=== PATIENT | female | born 1930 | race Caucasian/White ===

== ENCOUNTER → 2016-05-28 | Outpatient (CLI) | payer MEDICARE, BC ==
[~2016-05-28] MED LIST: ACIDTAB4 PO; ALPR0.25 PO; AUGM875T PO; BACT800T5 PO; BIOTCAP PO; DIOV80TA2 PO; LOTR10CA PO; POTA75TA PO; ZOCO40TA PO
[2016-05-28 09:12] LABS: HEMATOCRIT 34.6 % (35.0-46.0); MEAN CELL VOLUME 90.1 FL (80.0-100.0); MEAN CORPUSCULAR HEMOGLOBIN 29.4 PG (27.0-34.0); MEAN CORPUSCULAR HGB CONC 32.6 % (32.0-36.0); PLATELET COUNT 175 TH/MM3 (150-450); RED BLOOD COUNT 3.83 MIL/MM3 (4.00-5.30); RED CELL DISTRIBUTION WIDTH 13.6 % (11.6-17.2); REVIEW FLAG FINAL; WHITE BLOOD COUNT 7.5 TH/MM3 (4.0-11.0)
[2016-05-28 09:40] LABS: ALKALINE PHOSPHATASE 136 U/L (45-117); ALT (GPT) 15 U/L (10-53); ANION GAP 6 MEQ/L (5-15); AST (GOT) 18 U/L (15-37); BICARBONATE 27.8 MEQ/L (21.0-32.0); BLOOD UREA NITROGEN 30 MG/DL (7-18); CHLORIDE 106 MEQ/L (98-107); GLOMERULAR FILTRATION RATE 36 ML/MIN (>89); GLUCOSE,FASTING 87 MG/DL (74-99); HDL CHOLESTEROL 44.5 MG/DL (40.0-60.0); LDL CHOLESTEROL 77 MG/DL (0-99); LDL CHOLESTEROL DIRECT 89 MG/DL (0-99); POTASSIUM 4.7 MEQ/L (3.5-5.1); SODIUM (NA) 140 MEQ/L (136-145); TOTAL BILIRUBIN ADULT 0.4 MG/DL (0.2-1.0)
== END ==
LOC: PLAB 07:02
PROVIDERS: ATTEND Family Medicine
DX: I25.10 Atherosclerotic heart disease of native coronary artery without angina pectoris (principal); I12.9 Hypertensive chronic kidney disease with stage 1 through stage 4 chronic kidney disease, or unspecified chronic kidney disease; N18.3 Chronic kidney disease, stage 3 (moderate); R53.83 Other fatigue; E78.4 Other hyperlipidemia
CPT/HCPCS: 36415; 80053; 80061; 82607; 83721; 84443; 85027

== ENCOUNTER → 2016-08-27 | Outpatient (CLI) | payer MEDICARE, BC ==
[2016-08-27 09:21] LABS: ANION GAP 7 MEQ/L (5-15); AST (GOT) 18 U/L (15-37); BICARBONATE 22.8 MEQ/L (21.0-32.0); BLOOD UREA NITROGEN 34 MG/DL (7-18); CHLORIDE 105 MEQ/L (98-107); GLOMERULAR FILTRATION RATE 35 ML/MIN (>89); GLUCOSE,FASTING 86 MG/DL (74-99); POTASSIUM 4.9 MEQ/L (3.5-5.1); SODIUM (NA) 135 MEQ/L (136-145)
[2016-08-27 09:22] LABS: HEMATOCRIT 36.3 % (35.0-46.0); MEAN CELL VOLUME 89.4 FL (80.0-100.0); MEAN CORPUSCULAR HGB CONC 32.4 % (32.0-36.0); PLATELET COUNT 191 TH/MM3 (150-450); RED BLOOD COUNT 4.06 MIL/MM3 (4.00-5.30); RED CELL DISTRIBUTION WIDTH 13.7 % (11.6-17.2); REVIEW FLAG FINAL; WHITE BLOOD COUNT 7.7 TH/MM3 (4.0-11.0)
[2016-08-27 09:51] LABS: ALKALINE PHOSPHATASE 122 U/L (45-117); ALT (GPT) 16 U/L (10-53); HDL CHOLESTEROL 41.7 MG/DL (40.0-60.0); LDL CHOLESTEROL 88 MG/DL (0-99); LDL CHOLESTEROL DIRECT 77 MG/DL (0-99); TOTAL BILIRUBIN ADULT 0.3 MG/DL (0.2-1.0)
== END ==
LOC: PLAB 07:02
PROVIDERS: ATTEND Family Medicine
DX: I25.10 Atherosclerotic heart disease of native coronary artery without angina pectoris (principal); E78.5 Hyperlipidemia, unspecified; I10 Essential (primary) hypertension; E53.8 Deficiency of other specified B group vitamins
CPT/HCPCS: 36415; 80053; 80061; 82607; 83721; 85027

== ENCOUNTER → 2016-11-26 | Outpatient (CLI) | payer MEDICARE, BC ==
[2016-11-26 09:28] LABS: HEMATOCRIT 35.7 % (35.0-46.0); MEAN CELL VOLUME 92.4 FL (80.0-100.0); MEAN CORPUSCULAR HEMOGLOBIN 29.7 PG (27.0-34.0); MEAN CORPUSCULAR HGB CONC 32.2 % (32.0-36.0); PLATELET COUNT 210 TH/MM3 (150-450); RED BLOOD COUNT 3.87 MIL/MM3 (4.00-5.30); RED CELL DISTRIBUTION WIDTH 14.3 % (11.6-17.2); REVIEW FLAG FINAL; WHITE BLOOD COUNT 7.2 TH/MM3 (4.0-11.0)
[2016-11-26 09:45] LABS: ANION GAP 6 MEQ/L (5-15); BICARBONATE 24.1 MEQ/L (21.0-32.0); BLOOD UREA NITROGEN 32 MG/DL (7-18); CHLORIDE 108 MEQ/L (98-107); GLOMERULAR FILTRATION RATE 36 ML/MIN (>89); GLUCOSE,FASTING 90 MG/DL (74-99); POTASSIUM 4.8 MEQ/L (3.5-5.1); SODIUM (NA) 138 MEQ/L (136-145)
[2016-11-26 09:50] LABS: ALKALINE PHOSPHATASE 145 U/L (45-117); ALT (GPT) 22 U/L (10-53); AST (GOT) 23 U/L (15-37); HDL CHOLESTEROL 50.3 MG/DL (40.0-60.0); LDL CHOLESTEROL 68 MG/DL (0-99); LDL CHOLESTEROL DIRECT 75 MG/DL (0-99); TOTAL BILIRUBIN ADULT 0.3 MG/DL (0.2-1.0)
== END ==
LOC: PLAB 07:14
PROVIDERS: ATTEND Family Medicine
DX: I25.10 Atherosclerotic heart disease of native coronary artery without angina pectoris (principal); E78.5 Hyperlipidemia, unspecified; I12.9 Hypertensive chronic kidney disease with stage 1 through stage 4 chronic kidney disease, or unspecified chronic kidney disease; N18.3 Chronic kidney disease, stage 3 (moderate)
CPT/HCPCS: 36415; 80053; 80061; 83721; 85027

== ENCOUNTER → 2016-12-04 | Outpatient (CLI) | payer MEDICARE, BC | LOC: PLAB 08:41 | PROVIDERS: ATTEND Family Medicine | DX: R53.83 Other fatigue (principal) | CPT/HCPCS: 36415; 84443 ==

== ENCOUNTER 2017-01-06 14:12 | Inpatient (IN) | payer MEDICARE, BC ==
[~2017-01-06] VITALS: Ht 154.9 cm; Wt 54.0 kg
[2017-01-06] MEDS ORDERED: SODIUM CHLORIDE 0.9% FLUSH 10 ML FLUSH IVF PRN (14:30)
[2017-01-06] MEDS ORDERED: SODIUM CHLORID 0.9% 500 ML INJ 500 ML IV ONE (14:30)
[2017-01-06 14:32] VITALS: BP 176/77; PULSE 69; RESP 18; TEMP 98.2; O2SAT 100
[2017-01-06] MEDS ORDERED: MIRA25TA PO (14:41)
[2017-01-06] MEDS ORDERED: SIMV40TA PO (14:41)
[2017-01-06] MEDS ORDERED: LOSA100T2 PO (14:41)
[2017-01-06] MEDS ORDERED: ALPR0.25 PO (14:41)
[2017-01-06] MEDS ORDERED: POTA10CA PO (14:41)
[2017-01-06] MEDS ORDERED: VITA10002 PO (14:41)
[2017-01-06] MEDS ORDERED: OXYB5TAB10 PO (14:41)
[2017-01-06] MEDS ORDERED: AMLO5CAP3 PO (14:41)
[2017-01-06 14:42] VITALS: BP 176/77; PULSE 63; RESP 18; O2SAT 100
[2017-01-06 14:57] LABS: AUTOMATED NEUTROPHIL # 16.6 TH/MM3 (1.8-7.7); BASOPHIL % 0.2 % (0.0-2.0); HEMATOCRIT 36.2 % (35.0-46.0); HEMO FLAGS DIFF FINAL; LYMPH % 5.4 % (9.0-44.0); MEAN CELL VOLUME 91.7 FL (80.0-100.0); MEAN CORPUSCULAR HEMOGLOBIN 31.9 PG (27.0-34.0); MEAN CORPUSCULAR HGB CONC 34.8 % (32.0-36.0); MONO % 8.8 % (0.0-8.0); NEUT % 85.6 % (16.0-70.0); PLATELET COUNT 199 TH/MM3 (150-450); RED BLOOD COUNT 3.95 MIL/MM3 (4.00-5.30); RED CELL DISTRIBUTION WIDTH 13.4 % (11.6-17.2); WHITE BLOOD COUNT 19.4 TH/MM3 (4.0-11.0)
[2017-01-06 15:12] LABS: PROTHROMBIN TIME - PATIENT 11.4 SEC (9.8-11.6)
[2017-01-06 15:14] LABS: ANION GAP 8 MEQ/L (5-15); AST (GOT) 19 U/L (15-37); BLOOD UREA NITROGEN 35 MG/DL (7-18); CHLORIDE 108 MEQ/L (98-107); GLOMERULAR FILTRATION RATE 32 ML/MIN (>89); POTASSIUM 4.7 MEQ/L (3.5-5.1); SODIUM (NA) 136 MEQ/L (136-145)
[2017-01-06 15:17] LABS: ALKALINE PHOSPHATASE 136 U/L (45-117); ALT (GPT) 18 U/L (10-53); TOTAL BILIRUBIN ADULT 0.5 MG/DL (0.2-1.0)
[2017-01-06] MEDS ORDERED: SENNOSIDES 8.6 MG TAB PO PRN (16:45)
[2017-01-06] MEDS ORDERED: MAGNESIUM HYDROXIDE SUSP 30 ML CUP PO PRN (16:45)
[2017-01-06] MEDS ORDERED: SODIUM CHLORIDE 0.9% FLUSH 10 ML FLUSH IV FLUSH PRN (16:45)
[2017-01-06] MEDS ORDERED: NALOXONE HCL 0.4 MG/ML AMP IV PUSH PRN (16:45)
[2017-01-06] MEDS ORDERED: BISACODYL 10 MG SUPP RECTAL PRN (16:45)
[2017-01-06] MEDS ORDERED: ONDANSETRON HCL 4 MG/2 ML VIAL IVP PRN (16:45)
[2017-01-06] MEDS ORDERED: ACETAMINOPHEN 325 MG TAB PO PRN (16:45)
[2017-01-06] MEDS ORDERED: LACTULOSE SYRUP 20 GM/30 ML CUP PO PRN (16:45)
--- NOTE | 2017-01-06 17:40 | HHI.HP ---
HPI Service [facility] Primary Care Physician Vinay Kan MD Admission Diagnosis leukocytosis, GI bleed, diarrhea Diagnoses: Chief Complaint: Diarreha, syncope Travel History International Travel<30 Days: No Contact w/Intl Traveler <30 Da: No Traveled to Known Affected Are: No Sepsis Criteria SIRS Criteria (2 or more): WBC > 02251, < 4000 or > 10% bands Sepsis Criteria (SIRS+source): Infect source susp/known History of Present Illness Ms. Bacon is an 86 year old female with a history of coronary artery disease , hypertension who presents to the emergency department on 01/06/2017 due to multiple episodes of diarrhea, bloody diarrhea, nausea as well as syncope. She went out last night and had 2 drinks. Around 1 a.m. she went to the bathroom but on her way to the bathroom she had explosive loose bowel movement. She then passed out while she was on the toilet and she found herself in the shower. She later came to the bed and had another bloody loose bowel movement. She denies any fever or chills. She complains of abdominal pain, nausea but no vomiting. At the time of this interview, patient denies any chest pain, cough, shortness of breath. Review of Systems Except as stated in HPI: all other systems reviewed are Neg Past Family Social History Past Medical History Hypertension myocardial infarction 1982 Peripheral arterial disease Past Surgical History No major surgeries in the past. Reported Medications Vitamin B-12 (Cyanocobalamin) 1,000 Mcg Tab 1,000 Mcg PO DAILY Myrbetriq (Mirabegron) 25 Mg Tab 25 Mg PO DAILY Potassium Chloride ER (Potassium Chloride) 10 Meq Cap 10 Meq PO DAILY Ditropan (Oxybutynin Chloride) 5 Mg Tab 5 Mg PO Q12HR Alprazolam 0.25 Mg Tab 0.25 Mg PO Q4H PRN Losartan-Hydrochlorothiazide 100-25 Mg Tab 1 Tab PO DAILY Simvastatin 40 Mg Tab 40 Mg PO HS Amlodipine-Benazepril 5-20 Mg Cap 1 Cap PO DAILY Allergies: Coded Allergies: codeine (Unverified Adverse Reaction, Unknown, NAUSEA, 10/30/17) Family History No family history of Alzheimer's or Parkinson's. Social History Patient denies using tobacco. Drinks alcohol occasionally. Physical Exam Vital Signs Vital Signs Date Time Temp Pulse Resp B/P (MAP) Pulse Ox O2 Delivery O2 Flow Rate FiO2 01/06/17 14:42 63 18 176/77 (110) 100 Room Air 01/06/17 14:42 176/77 (110) 01/06/17 14:32 98.2 69 18 176/77 (110) 100 Physical Exam GENERAL: This is a well-nourished, well-developed patient, in no apparent distress. SKIN: No rashes, ecchymoses or lesions. Warm and dry. HEAD: Atraumatic. Normocephalic. No temporal or scalp tenderness. EYES: Pupils equal round and reactive. No injection or drainage. ENT: Nose without bleeding, purulent drainage or septal hematoma. Airway patent. NECK: Trachea midline. No lymphadenopathy. Supple, nontender, no meningeal signs. CARDIOVASCULAR: Regular rate and rhythm without murmurs, gallops, or rubs. No JVD. RESPIRATORY: Clear to auscultation. Breath sounds equal bilaterally. No wheezes , rales, or rhonchi. GASTROINTESTINAL: Abdomen soft, mildly tender to palpation, nondistended. No guarding. MUSCULOSKELETAL: Extremities without clubbing, cyanosis, or edema. NEUROLOGICAL: Awake and alert. Cranial nerves II through XII intact. No focal neurological deficits. Normal speech. Laboratory Laboratory Tests Test 01/06/17 14:40 01/06/17 15:25 White Blood Count 19.4 Red Blood Count 3.95 Hemoglobin 12.6 Hematocrit 36.2 Mean Corpuscular Volume 91.7 Mean Corpuscular Hemoglobin 31.9 Mean Corpuscular Hemoglobin Concent 34.8 Red Cell Distribution Width 13.4 Platelet Count 199 Mean Platelet Volume 9.2 Neutrophils (%) (Auto) 85.6 Lymphocytes (%) (Auto) 5.4 Monocytes (%) (Auto) 8.8 Eosinophils (%) (Auto) 0.0 Basophils (%) (Auto) 0.2 Neutrophils # (Auto) 16.6 Lymphocytes # (Auto) 1.0 Monocytes # (Auto) 1.7 Eosinophils # (Auto) 0.0 Basophils # (Auto) 0.0 CBC Comment DIFF FINAL Differential Comment Prothrombin Time 11.4 Prothromb Time International Ratio 1.0 Blood Urea Nitrogen 35 Creatinine 1.54 Random Glucose 146 Total Protein 7.1 Albumin 3.2 Calcium Level 8.4 Alkaline Phosphatase 136 Aspartate Amino Transf (AST/SGOT) 19 Alanine Aminotransferase (ALT/SGPT) 18 Total Bilirubin 0.5 Sodium Level 136 Potassium Level 4.7 Chloride Level 108 Carbon Dioxide Level 20.0 Anion Gap 8 Estimat Glomerular Filtration Rate 32 Troponin I 0.04 Lactic Acid Level 1.1 Date/Time Source Procedure Growth Status 01/06/17 15:25 Blood Peripheral Aerobic Blood Culture Pending Received 01/06/17 15:25 Blood Peripheral Anaerobic Blood Culture Pending Received Result Diagram: 01/06/17 1440 01/06/17 1440 Caprini VTE Risk Assessment Caprini VTE Risk Assessment: Mod/High Risk (score >= 2) Caprini Risk Assessment Model Point Value = 1 Point Value = 2 Point Value = 3 Point Value = 5 Age 41-60 Minor surgery BMI > 25 kg/m2 Swollen legs Varicose veins or History of unexplained or recurrent spontaneous Oral contraceptives or hormone replacement Sepsis (< 1 month) Serious lung disease, including pneumonia (< 1 month) Abnormal pulmonary function Acute myocardial infarction Congestive heart failure (< 1 month) History of inflammatory bowel disease Medical patient at bed rest Age 61-74 Arthroscopic surgery Major open surgery (> 45 min) Laparoscopic surgery (> 45 min) Malignancy Confined to bed (> 72 hours) Immobilizing plaster cast Central venous access Age >= 75 History of VTE Family history of VTE Factor V Leiden Prothrombin [id number] Lupus anticoagulant Anticardiolipin antibodies Elevated serum homocysteine Heparin-induced thrombocytopenia Other congenital or acquired thrombophilia Stroke (< 1 month) Elective arthroplasty Hip, pelvis, or leg fracture Acute spinal cord injury (< 1 month) Prophylaxis Regimen Total Risk Factor Score Risk Level Prophylaxis Regimen 0-1 Low Early ambulation 2 Moderate Order ONE of the following: *Sequential Compression Device (SCD) *Heparin 5000 units SQ BID 3-4 Higher Order ONE of the following medications: *Heparin 5000 units SQ TID *Enoxaparin/Lovenox 40 mg SQ daily (WT < 150 kg, CrCl > 30 mL/min) *Enoxaparin/Lovenox 30 mg SQ daily (WT < 150 kg, CrCl > 10-29 mL/min) *Enoxaparin/Lovenox 30 mg SQ BID (WT < 150 kg, CrCl > 30 mL/min) AND/OR *Sequential Compression Device (SCD) 5 or more Highest Order ONE of the following medications: *Heparin 5000 units SQ TID (Preferred with Epidurals) *Enoxaparin/Lovenox 40 mg SQ daily (WT < 150 kg, CrCl > 30 mL/min) *Enoxaparin/Lovenox 30 mg SQ daily (WT < 150 kg, CrCl > 10-29 mL/min) *Enoxaparin/Lovenox 30 mg SQ BID (WT < 150 kg, CrCl > 30 mL/min) AND *Sequential Compression Device (SCD) Assessment and Plan Problem List: (1) Diarrhea ICD Code: R19.7 - Diarrhea, unspecified (2) Syncope ICD Code: R55 - Syncope and collapse Status: Acute (3) Hematochezia ICD Code: K92.1 - Melena Status: Acute (4) Acute on chronic renal insufficiency ICD Code: N17.9 - Acute kidney failure, unspecified; N18.9 - Chronic kidney disease, unspecified Status: Acute Assessment and Plan Ms. Bacon is an 86 year old female who presents to the ED on 01/06/2017 due to diarrheal episodes that started around 1AM on the day of admission. She went to the bathroom and had a syncopal episode as well. She has not had any further diarrhea since she came to the hospital. Patient noted that earlier in the evening on 01/05/2017, patient went out and had two alcoholic drinks. - Diarrhea - Hematochezia - No further diarrhea. - There was some concern from ED provider regarding C. Diff colitis. Patient' s WBC count is elevated. - While we wait for C. Diff PCR, we will empirically start patient on IV Flagyl and PO Vancomycin. - If no further diarrhea or C. Diff PCR negative, consider discontinuing these abx. - Diarrhea could potentially be due to alcoholic drinks. - Acute kidney injury - Likely due to volume depletion. Creatinine today 1.54. - Will start patient on NS @ 100cc/hour. - Hypertension - Will continue Amlodipine 5mg Qday. - Hold off using Losartan. Patient was also on KOLTON inhibitor. \ - In general, adverse side effects of KOLTON inhibitors and ARB can be significant and should generally be avoided. - If needed, we will consider Hydralazine. - Anxiety - Continue Xanax 0.25mg Q4hrs PRN. Full code. SCDs. Physician Certification 2 Midnight Certification Type: Admission for Inpatient Services Order for Inpatient Services The services are ordered in accordance with Medicare regulations or non- Medicare payer requirements, as applicable. In the case of services not specified as inpatient-only, they are appropriately provided as inpatient services in accordance with the 2-midnight benchmark. Estimated LOS (days): 2 days is the estimated time the patient will need to remain in the hospital, assuming treatment plan goals are met and no additional complications. Post-Hospital Plan: Not yet determined Problem Qualifiers (1) Syncope: Qualified Codes: R55 - Syncope and collapse Viv Bruce DO Jan 06, 2017 17:40
[2017-01-06] MEDS: SODIUM CHLOR 0.9% 1000 ML INJ 1,000 ML IV SCH (18:03)
[2017-01-06] MEDS: metroNIDAZOLE 500 MG INJ 100 ML IV SCH (18:03)
[2017-01-06 18:14] VITALS: BP 151/72; PULSE 86; RESP 18; O2SAT 97
[2017-01-06] MEDS: VANCOMYCIN 500 MG VIAL (FOR ORAL USE ONLY) PO SCH ×2 (18:15→19:46)
--- NOTE | 2017-01-06 18:22 | PD ---
HPI Chief Complaint: Abdominal Pain Time Seen by Provider: 14:21 Travel History International Travel<30 days: No Contact w/Intl Traveler<30days: No Traveled to known affect area: No History of Present Illness HPI 86-year-old female came to the emergency room with history of bloody diarrhea. Patient said it started earlier this morning and she has had multiple episodes of watery diarrhea but in between few of them had blood. At one point patient was on the toilet and passed out. She did not know that she was going to pass out and woke up in the bathtub. Patient is not sure how she went to the bathtub. She was awake and answering questions appropriately. When EMS arrived they noticed that she had an explosive episode of diarrhea which did not look bloody to them. Upon putting her on the monitor they noticed few PVCs. Based on the twelve-lead infrequent PVCs patient received amiodarone 150 mg bolus by the buildings and grounds supervisor. Patient arrived and was answering questions appropriately vital signs were stable. Denied any chest pain or shortness of breath. She said she has been on multiple doses of antibiotic but nothing in past 2 months. No recent hospitalization. No history of C. difficile in the past. [facility] Past Medical History Narrative Medical List of her past medical, surgical, social and family history is reviewed from the nursing note. 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 Reported Meds & Prescriptions Reported Meds & Active Scripts Active Reported Vitamin B-12 (Cyanocobalamin) 1,000 Mcg Tab 1,000 Mcg PO DAILY Myrbetriq (Mirabegron) 25 Mg Tab 25 Mg PO DAILY Potassium Chloride ER (Potassium Chloride) 10 Meq Cap 10 Meq PO DAILY Ditropan (Oxybutynin Chloride) 5 Mg Tab 5 Mg PO Q12HR Alprazolam 0.25 Mg Tab 0.25 Mg PO Q4H PRN Simvastatin 40 Mg Tab 40 Mg PO HS Narrative Medication List of her home medications reviewed from the nursing note. Review of Systems Except as stated in HPI: all other systems reviewed are Neg Gastrointestinal: Positive: Diarrhea, Hematochezia Physical Exam Narrative GENERAL: Awake, alert, moderate distress SKIN: Focused skin assessment warm/dry. HEAD: Atraumatic. Normocephalic. EYES: Pupils equal and round. No scleral icterus. No injection or drainage. ENT: No nasal bleeding or discharge. Dry mucous membrane NECK: Trachea midline. No JVD. CARDIOVASCULAR: Regular rate and rhythm. No murmur appreciated. RESPIRATORY: No accessory muscle use. Clear to auscultation. Breath sounds equal bilaterally. GASTROINTESTINAL: Abdomen soft, non-tender, nondistended. Hepatic and splenic margins not palpable. MUSCULOSKELETAL: No obvious deformities. No clubbing. No cyanosis. No edema. NEUROLOGICAL: Awake and alert. No obvious cranial nerve deficits. Motor grossly within normal limits. Normal speech. PSYCHIATRIC: Appropriate mood and affect; insight and judgment normal. Data Data Last Documented VS Vital Signs Date Time Temp Pulse Resp B/P (MAP) Pulse Ox O2 Delivery O2 Flow Rate FiO2 01/06/17 14:42 63 18 176/77 (110) 100 Room Air 01/06/17 14:32 98.2 Orders Orders Complete Blood Count With Diff (01/06/17 14:21) Comprehensive Metabolic Panel (01/06/17 14:21) Prothrombin Time / Inr (Pt) (01/06/17 14:21) Type And Screen (01/06/17 14:21) Ecg Monitoring (01/06/17 14:21) Iv Access Insert/Monitor (01/06/17 14:21) Oximetry (01/06/17 14:21) Sodium Chloride 0.9% Flush (Ns Flush) (01/06/17 14:30) Sodium Chlorid 0.9% 500 Ml Inj (Ns 500 M (01/06/17 14:30) Troponin I (01/06/17 14:22) Lactic Acid (01/06/17 15:03) Blood Culture (01/06/17 15:03) Admit To Inpatient (01/06/17 ) Vital Signs (Adult) Q4H (01/06/17 16:43) Activity Oob With Assistance (01/06/17 16:43) Flux Plant Operator / Telemetry .CONTINUOUS (01/06/17 16:43) Diet Heart Healthy (01/06/17 Dinner) Sodium Chlor 0.9% 1000 Ml Inj (Ns 1000 M (01/06/17 16:43) Sodium Chloride 0.9% Flush (Ns Flush) (01/06/17 16:45) Sodium Chloride 0.9% Flush (Ns Flush) (01/06/17 21:00) Acetaminophen (Tylenol) (01/06/17 16:45) Ondansetron Inj (Zofran Inj) (01/06/17 16:45) Basic Metabolic Panel (Bmp) (01/07/17 06:00) Complete Blood Count With Diff (01/07/17 06:00) Resp Oxygen Pablo C Titrat 1-4 L (01/06/17 ) Scd Bilateral/Knee High ADDY.BID (01/06/17 16:43) Naloxone Inj (Narcan Inj) (01/06/17 16:45) Magnesium Hydroxide Liq (Milk Of Magnesi (01/06/17 16:45) Sennosides (Senokot) (01/06/17 16:45) Bisacodyl Supp (Dulcolax Supp) (01/06/17 16:45) Lactulose Liq (Lactulose Liq) (01/06/17 16:45) Inpatient Certification (01/06/17 ) Metronidazole 500 Mg Inj (Flagyl 500 Mg (01/06/17 17:00) Vancomycin For Oral Use Only (Vancomycin (01/06/17 18:00) Electrocardiogram (01/06/17 14:26) Admit Order (Ed Use Only) (01/06/17 17:13) Labs Laboratory Tests Test 01/06/17 14:40 01/06/17 15:25 White Blood Count 19.4 TH/MM3 Red Blood Count 3.95 MIL/MM3 Hemoglobin 12.6 GM/DL Hematocrit 36.2 % Mean Corpuscular Volume 91.7 FL Mean Corpuscular Hemoglobin 31.9 PG Mean Corpuscular Hemoglobin Concent 34.8 % Red Cell Distribution Width 13.4 % Platelet Count 199 TH/MM3 Mean Platelet Volume 9.2 FL Neutrophils (%) (Auto) 85.6 % Lymphocytes (%) (Auto) 5.4 % Monocytes (%) (Auto) 8.8 % Eosinophils (%) (Auto) 0.0 % Basophils (%) (Auto) 0.2 % Neutrophils # (Auto) 16.6 TH/MM3 Lymphocytes # (Auto) 1.0 TH/MM3 Monocytes # (Auto) 1.7 TH/MM3 Eosinophils # (Auto) 0.0 TH/MM3 Basophils # (Auto) 0.0 TH/MM3 CBC Comment DIFF FINAL Differential Comment Prothrombin Time 11.4 SEC Prothromb Time International Ratio 1.0 RATIO Blood Urea Nitrogen 35 MG/DL Creatinine 1.54 MG/DL Random Glucose 146 MG/DL Total Protein 7.1 GM/DL Albumin 3.2 GM/DL Calcium Level 8.4 MG/DL Alkaline Phosphatase 136 U/L Aspartate Amino Transf (AST/SGOT) 19 U/L Alanine Aminotransferase (ALT/SGPT) 18 U/L Total Bilirubin 0.5 MG/DL Sodium Level 136 MEQ/L Potassium Level 4.7 MEQ/L Chloride Level 108 MEQ/L Carbon Dioxide Level 20.0 MEQ/L Anion Gap 8 MEQ/L Estimat Glomerular Filtration Rate 32 ML/MIN Troponin I 0.04 NG/ML Lactic Acid Level 1.1 mmol/L MDM Medical Decision Making Medical Screen Exam Complete: Yes Emergency Medical Condition: Yes Medical Record Reviewed: Yes Interpretation(s) Twelve-lead EKG was reviewed by me. Normal sinus rhythm, normal axis, PVCs, lateral T wave inversions questionable old inferior SC. Heart rate of 64 bpm. Differential Diagnosis C. difficile colitis, ischemic colitis, electrolyte abnormality, GI bleed Narrative Course 4:30 PM the test results of back and patient has significant leukocytosis. Her hemoglobin and hematocrit are stable. Electrolytes appear to be within acceptable limit. In my opinion patient may have C. difficile colitis. I've ordered stool for C. difficile colitis. I discussed the case with the hospitalist who has accepted the patient and wants to start the patient prophylactically on vancomycin and Flagyl. Procedures EKG Prior to Arrival: No HemaPrompt Point of Care Internal Pos. & Neg. Controls: Passed Fecal Specimen Occult Blood: Positive Comment Gross blood Diagnosis Primary Impression: Hematochezia Additional Impressions: Syncope Qualified Codes: R55 - Syncope and collapse possible C. difficile colitis Leukocytosis Qualified Codes: D72.829 - Elevated white blood cell count, unspecified Admitting Information Admitting Physician Requests: Admit Scripts Amlodipine-Benazepril (Amlodipine-Benazepril) 10-20 Mg Cap 1 CAP PO DAILY for Blood Pressure Management, #30 CAP 0 Refills Prov: Keara Hastings MD 01/08/17 Chetna Tang MD Jan 06, 2017 18:22
[2017-01-06] MEDS: SODIUM CHLORIDE 0.9% FLUSH 10 ML FLUSH IV FLUSH SCH (19:46)
[2017-01-06 20:00] VITALS: BP 167/60; PULSE 84; RESP 20; TEMP 97.9; O2SAT 95
[2017-01-07] VITALS: BP 165/70; PULSE 71; RESP 20; TEMP 95.5; O2SAT 100
[2017-01-07] MEDS: metroNIDAZOLE 500 MG INJ 100 ML IV SCH ×3 (01:38→16:07)
[2017-01-07] MEDS: SODIUM CHLOR 0.9% 1000 ML INJ 1,000 ML IV SCH ×2 (02:43→19:46)
[2017-01-07 07:58] LABS: AUTOMATED NEUTROPHIL # 13.3 TH/MM3 (1.8-7.7); BASOPHIL % 0.3 % (0.0-2.0); EOSINOPHIL # 0.1 TH/MM3 (0-0.4); EOSINOPHIL % 0.3 % (0.0-4.0); HEMATOCRIT 34.6 % (35.0-46.0); HEMO FLAGS DIFF FINAL; LYMPH % 15.3 % (9.0-44.0); LYMPHOCYTE # 2.7 TH/MM3 (1.0-4.8); MEAN CELL VOLUME 92.8 FL (80.0-100.0); MEAN CORPUSCULAR HEMOGLOBIN 30.9 PG (27.0-34.0); MEAN CORPUSCULAR HGB CONC 33.2 % (32.0-36.0); MONO % 9.7 % (0.0-8.0); NEUT % 74.4 % (16.0-70.0); PLATELET COUNT 176 TH/MM3 (150-450); RED BLOOD COUNT 3.73 MIL/MM3 (4.00-5.30); RED CELL DISTRIBUTION WIDTH 13.7 % (11.6-17.2); WHITE BLOOD COUNT 17.8 TH/MM3 (4.0-11.0)
[2017-01-07 08:00] VITALS: BP 191/79; PULSE 67; RESP 20; TEMP 97.7; O2SAT 95
[2017-01-07] MEDS: OXYBUTYNIN CHLORIDE 5 MG TAB PO SCH ×2 (08:18→19:48)
[2017-01-07] MEDS: CYANOCOBALAMIN 1,000 MCG TAB PO SCH (08:18)
[2017-01-07] MEDS: SODIUM CHLORIDE 0.9% FLUSH 10 ML FLUSH IV FLUSH SCH ×2 (08:23→19:48)
[2017-01-07 08:27] LABS: BICARBONATE 19.1 MEQ/L (21.0-32.0); POTASSIUM 4.2 MEQ/L (3.5-5.1)
[2017-01-07] MEDS: VANCOMYCIN 500 MG VIAL (FOR ORAL USE ONLY) PO SCH ×4 (08:33→19:48)
[2017-01-07] MEDS: MYRBETRIQ 25 MG PO SCH (08:35)
[2017-01-07] MEDS ORDERED: NON-FORMULARY DRUG (Mirabegron (Myrbetriq) 25 MG) PO SCH (09:00)
[2017-01-07] MEDS ORDERED: amLODIPine BESYLATE 5 MG TAB PO SCH (09:00)
[2017-01-07 12:00] VITALS: BP 150/80; PULSE 53; RESP 20; TEMP 96.9; O2SAT 98
[2017-01-07 16:00] VITALS: BP 178/86; PULSE 71; RESP 18; TEMP 96.9; O2SAT 96
--- NOTE | 2017-01-07 18:21 | EKG ---
Date Performed: 01/06/2017 Time Performed: 14:26:32 PTAGE: 86 years EKG: Sinus rhythm WITH OCCASIONAL ECTOPIC PREMATURE COMPLEXES LEFT VENTRICULAR HYPERTROPHY AND ST-T CHANGE INFERIOR MY OCARDIAL INFARCTION ANTEROLATERAL MYOCARDIAL INFARCTION ABNORMAL ECG Compared to prior tracing no sig nificant change PREVIOUS TRACING : 03/23/2002 15.05.20 DOCTOR: Angela Leon Interpretating Date/Time 01/07/2017 18:19:57
[2017-01-07 20:04] VITALS: BP 177/74; PULSE 83; RESP 16; TEMP 97; O2SAT 97
[2017-01-07] MEDS ORDERED: PRAVASTATIN SOD 80 MG TAB PO SCH (21:00)
[2017-01-07] MEDS ORDERED: amLODIPine BESYLATE 5 MG TAB PO ONE (21:00)
[2017-01-07] MEDS: ALPRAZolam 0.25 MG TAB PO PRN (21:27)
--- NOTE | 2017-01-07 22:25 | HHI.PR ---
Subjective Remarks Patient reported no bowel movement today positive gas, positive abdominal pain she also reported bloody urine Objective Vitals Vital Signs Date Time Temp Pulse Resp B/P (MAP) Pulse Ox O2 Delivery O2 Flow Rate FiO2 01/07/17 20:04 97.0 83 16 177/74 (108) 97 01/07/17 16:00 96.9 71 18 178/86 (116) 96 01/07/17 12:00 96.9 53 20 150/80 (103) 98 01/07/17 08:00 97.7 67 20 191/79 (116) 95 01/07/17 00:00 95.5 71 20 165/70 (101) 100 I/O 01/06/17 01/06/17 01/06/17 01/07/17 01/07/17 01/07/17 07:00 15:00 23:00 07:00 15:00 23:00 Intake Total 500 ml 957 ml 220 ml 1671 ml Output Total 450 ml Balance 500 ml 957 ml 220 ml 1221 ml Intake Oral 120 ml 960 ml IV Total 500 ml 957 ml 100 ml 711 ml Output Urine Total 450 ml # Bowel Movements 1 Result Diagram: 01/07/17 0650 01/07/17 0650 Objective Remarks GENERAL: This is a well-nourished, well-developed patient, in no apparent distress. SKIN: No rashes, warm and dry HEAD: Atraumatic. Normocephalic. EYES: Pupils equal round and reactive. Extraocular motions intact. No scleral icterus. ENT: Nose without bleeding, or drainage, Airway patent. NECK: Trachea midline. Supple CARDIOVASCULAR: Regular rate and rhythm 3/6 systolic murmur RESPIRATORY: Fair air entry bilaterally. No wheezes, rales, or rhonchi. GASTROINTESTINAL: Abdomen soft, non-tender, nondistended. Positive bowel sounds MUSCULOSKELETAL: Extremities without clubbing, cyanosis, or edema. Pedal pulses appreciated NEUROLOGICAL: Awake and alert. Moves all extremity. Normal speech.no focal neurological deficit A/P Problem List: (1) Diarrhea ICD Code: R19.7 - Diarrhea, unspecified (2) Syncope ICD Code: R55 - Syncope and collapse Status: Acute (3) Hematochezia ICD Code: K92.1 - Melena Status: Acute (4) Acute on chronic renal insufficiency ICD Code: N17.9 - Acute kidney failure, unspecified; N18.9 - Chronic kidney disease, unspecified Status: Acute Assessment and Plan 01/07: C. difficile pending awaiting stool, blood pressure 150/80 increase Norvas, monitor clinically Ms. Bacon is an 86 year old female who presents to the ED on 01/06/2017 due to diarrheal episodes that started around 1AM on the day of admission. She went to the bathroom and had a syncopal episode as well. She has not had any further diarrhea since she came to the hospital. Patient noted that earlier in the evening on 01/05/2017, patient went out and had two alcoholic drinks. - Diarrhea - Hematochezia - No further diarrhea. - There was some concern from ED provider regarding C. Diff colitis. Patient' s WBC count is elevated. - While we wait for C. Diff PCR, we will empirically start patient on IV Flagyl and PO Vancomycin. - If no further diarrhea or C. Diff PCR negative, consider discontinuing these abx. - Diarrhea could potentially be due to alcoholic drinks. - Acute kidney injury - Likely due to volume depletion. Creatinine today 1.54. - Will start patient on NS @ 100cc/hour. - Hypertension - Will continue Amlodipine 5mg Qday. - Hold off using Losartan. Patient was also on KOLTON inhibitor. \ - In general, adverse side effects of KOLTON inhibitors and ARB can be significant and should generally be avoided. - If needed, we will consider Hydralazine. - Anxiety - Continue Xanax 0.25mg Q4hrs PRN. Full code. SCDs. Problem Qualifiers (1) Syncope: Qualified Codes: R55 - Syncope and collapse Jasvir Watson MD Jan 07, 2017 22:25
[2017-01-07 23:50] VITALS: BP 157/68; PULSE 70; RESP 17; TEMP 97; O2SAT 96
[2017-01-08] MEDS: metroNIDAZOLE 500 MG INJ 100 ML IV SCH ×2 (00:28→08:40)
[2017-01-08 04:29] VITALS: BP 180/80; PULSE 80; RESP 16; TEMP 96.8; O2SAT 97
[2017-01-08] MEDS ORDERED: ENALAPRILAT 2.5 MG/2 ML VIAL IV PUSH ONE (04:30)
[2017-01-08] MEDS: ALPRAZolam 0.25 MG TAB PO PRN (04:46)
[2017-01-08 04:48] VITALS: RESP 28; O2SAT 85
[2017-01-08 05:17] VITALS: BP 166/72; PULSE 78; RESP 18; O2SAT 93
[2017-01-08] MEDS: SODIUM CHLOR 0.9% 1000 ML INJ 1,000 ML IV SCH ×2 (06:56→08:43)
[2017-01-08 07:40] LABS: AUTOMATED NEUTROPHIL # 9.4 TH/MM3 (1.8-7.7); BASOPHIL # 0.1 TH/MM3 (0-0.2); BASOPHIL % 0.4 % (0.0-2.0); EOSINOPHIL # 0.2 TH/MM3 (0-0.4); EOSINOPHIL % 1.9 % (0.0-4.0); HEMO FLAGS DIFF FINAL; LYMPH % 14.5 % (9.0-44.0); LYMPHOCYTE # 1.8 TH/MM3 (1.0-4.8); MEAN CELL VOLUME 92.8 FL (80.0-100.0); MEAN CORPUSCULAR HEMOGLOBIN 30.6 PG (27.0-34.0); MEAN CORPUSCULAR HGB CONC 32.9 % (32.0-36.0); MONO % 8.4 % (0.0-8.0); NEUT % 74.8 % (16.0-70.0); PLATELET COUNT 158 TH/MM3 (150-450); RED BLOOD COUNT 3.67 MIL/MM3 (4.00-5.30); RED CELL DISTRIBUTION WIDTH 13.8 % (11.6-17.2); WHITE BLOOD COUNT 12.6 TH/MM3 (4.0-11.0)
[2017-01-08 07:58] LABS: BICARBONATE 19.1 MEQ/L (21.0-32.0); POTASSIUM 3.8 MEQ/L (3.5-5.1)
[2017-01-08 08:00] VITALS: BP 174/75; PULSE 72; RESP 20; TEMP 96.9; O2SAT 95
[2017-01-08 08:21] VITALS: O2SAT 95
[2017-01-08] MEDS: CYANOCOBALAMIN 1,000 MCG TAB PO SCH (08:36)
[2017-01-08] MEDS: VANCOMYCIN 500 MG VIAL (FOR ORAL USE ONLY) PO SCH (08:36)
[2017-01-08] MEDS: OXYBUTYNIN CHLORIDE 5 MG TAB PO SCH (08:36)
[2017-01-08] MEDS: SODIUM CHLORIDE 0.9% FLUSH 10 ML FLUSH IV FLUSH SCH (09:00)
[2017-01-08] MEDS: MYRBETRIQ 25 MG PO SCH (09:00)
[2017-01-08] MEDS ORDERED: AMLO10CA PO (10:44)
--- NOTE | 2017-01-08 10:45 | HHI.DCPOC ---
Discharge Care Plan Diagnosis: (1) Diarrhea (2) Acute on chronic renal insufficiency (3) Leukocytosis (4) Gastroenteritis Goals to Promote Your Health * To prevent worsening of your condition and complications * To maintain your health at the optimal level Directions to Meet Your Goals Take your medications as prescribed Follow your dietary instruction Follow activity as directed Keep your appointments as scheduled Take your immunizations and boosters as scheduled If your symptoms worsen call your PCP, if no PCP go to Urgent Care Center or Emergency Room Smoking is Dangerous to Your Health. Avoid second hand smoke Call the 24-hour hour crisis hotline for domestic abuse at Keara Hastings MD Jan 08, 2017 10:45
--- NOTE | 2017-01-08 10:51 | HHI.DS ---
Discharge Summary Admission Date Jan 06, 2017 at 17:14 Discharge Date: Jan 08, 2017 Admitting Diagnosis leukocytosis, GI bleed, diarrhea (1) Diarrhea ICD Code: R19.7 - Diarrhea, unspecified (2) Syncope ICD Code: R55 - Syncope and collapse Status: Acute (3) Hematochezia ICD Code: K92.1 - Melena Status: Acute (4) Acute on chronic renal insufficiency ICD Code: N17.9 - Acute kidney failure, unspecified; N18.9 - Chronic kidney disease, unspecified Status: Acute Procedures None Brief History - From Admission History of present illness from the admitting physician Ms. Bacon is an 86 year old female with a history of coronary artery disease , hypertension who presents to the emergency department on 01/06/2017 due to multiple episodes of diarrhea, bloody diarrhea, nausea as well as syncope. She went out last night and had 2 drinks. Around 1 a.m. she went to the bathroom but on her way to the bathroom she had explosive loose bowel movement. She then passed out while she was on the toilet and she found herself in the shower. She later came to the bed and had another bloody loose bowel movement. She denies any fever or chills. She complains of abdominal pain, nausea but no vomiting. At the time of this interview, patient denies any chest pain, cough, shortness of breath. CBC/BMP: 01/08/17 0538 01/08/17 0538 Significant Findings Laboratory Tests Test 01/06/17 14:40 01/06/17 15:25 01/07/17 06:50 01/08/17 05:38 White Blood Count 19.4 TH/MM3 (4.0-11.0) 17.8 TH/MM3 (4.0-11.0) 12.6 TH/MM3 (4.0-11.0) Red Blood Count 3.95 MIL/MM3 (4.00-5.30) 3.73 MIL/MM3 (4.00-5.30) 3.67 MIL/MM3 (4.00-5.30) Neutrophils (%) (Auto) 85.6 % (16.0-70.0) 74.4 % (16.0-70.0) 74.8 % (16.0-70.0) Lymphocytes (%) (Auto) 5.4 % (9.0-44.0) Monocytes (%) (Auto) 8.8 % (0.0-8.0) 9.7 % (0.0-8.0) 8.4 % (0.0-8.0) Neutrophils # (Auto) 16.6 TH/MM3 (1.8-7.7) 13.3 TH/MM3 (1.8-7.7) 9.4 TH/MM3 (1.8-7.7) Monocytes # (Auto) 1.7 TH/MM3 (0-0.9) 1.7 TH/MM3 (0-0.9) 1.1 TH/MM3 (0-0.9) Blood Urea Nitrogen 35 MG/DL (7-18) 25 MG/DL (7-18) Creatinine 1.54 MG/DL (0.50-1.00) 1.24 MG/DL (0.50-1.00) 1.05 MG/DL (0.50-1.00) Random Glucose 146 MG/DL (74-106) Albumin 3.2 GM/DL (3.4-5.0) Calcium Level 8.4 MG/DL (8.5-10.1) 8.0 MG/DL (8.5-10.1) 7.6 MG/DL (8.5-10.1) Alkaline Phosphatase 136 U/L (45-117) Chloride Level 108 MEQ/L (98-107) 111 MEQ/L (98-107) 111 MEQ/L (98-107) Carbon Dioxide Level 20.0 MEQ/L (21.0-32.0) 19.1 MEQ/L (21.0-32.0) 19.1 MEQ/L (21.0-32.0) Estimat Glomerular Filtration Rate 32 ML/MIN (>89) 41 ML/MIN (>89) 49 ML/MIN (>89) Hemoglobin 11.5 GM/DL (11.6-15.3) 11.2 GM/DL (11.6-15.3) Hematocrit 34.6 % (35.0-46.0) 34.0 % (35.0-46.0) PE at Discharge GENERAL: This is a well-nourished, well-developed patient, in no apparent distress. CARDIOVASCULAR: Normal rate and regular rhythm without murmurs, gallops, or rubs. RESPIRATORY: Good respiratory efforts. Breath sounds equal and clear to auscultation bilaterally. GASTROINTESTINAL: Abdomen soft, non-tender, non-distended. Normal active bowel sounds MUSCULOSKELETAL: Extremities without cyanosis, or edema. NEURO: Alert & Oriented x4 to person, place, time, situation. Moves all ext x4 PSYCH: Appropriate mood and affect. Pt update on day of discharge Patient reports she is feeling much better. Tolerating her food. No bowel movement or diarrhea since arrival. Hospital Course 86-year-old female who presented to the hospital with complaint of acute diarrhea. Patient also had evidence of acute on chronic renal failure on presentation. The patient was empirically started on IV Flagyl and by mouth vancomycin. She did not have any further episodes of diarrhea since presentation. Therefore highly doubt C. difficile colitis. She admits to drinking 2 glasses of wine, white chocolate martini, and calamari tonight before. I believe her symptoms are attributed to gastroenteritis which caused her to become dehydrated and went into acute on chronic renal failure. Renal functions improved with IV fluid. Her blood pressure labile because some of her blood pressure medications were initially held due to potential adverse effect on her kidneys. She was treated accordingly. Patient improved and discharged home to follow up outpatient with her PCP to consider further titration of her antihypertensives. She was on an KOLTON inhibitor and ARB. She was advised to discontinue the ARB. Follow-up with her primary care physician for further titration of antihypertensives as needed. Pt Condition on Discharge: Good Discharge Disposition: Discharge Home Discharge Time: <= 30 minutes Discharge Instructions DIET: Follow Instructions for: Heart Healthy Diet Activities you can perform: Regular-No Restrictions Follow up Referrals: PCP Follow-up Changed Medications: Amlodipine-Benazepril (Amlodipine-Benazepril) 10-20 Mg Cap 1 CAP PO DAILY for Blood Pressure Management, #30 CAP 0 Refills (Changed from: Amlodipine-Benazepril 5-20 Mg Cap 1 Cap PO DAILY Blood Pressure Management #30 CAP Ref 0) Continued Medications: Alprazolam (Alprazolam) 0.25 Mg Tab 0.25 MG PO Q4H PRN for ANXIETY, TAB 0 Refills Cyanocobalamin (Vitamin B-12) 1,000 Mcg Tab 1000 MCG PO DAILY for Nutritional Supplement, #1 BOTTLE 0 Refills Mirabegron (Myrbetriq) 25 Mg Tab 25 MG PO DAILY for Urinary Symptom Managemen, #30 TAB 0 Refills Oxybutynin (Ditropan) 5 Mg Tab 5 MG PO Q12HR for Urinary Symptom Managemen, #60 TAB 0 Refills Potassium Chloride ER (Potassium Chloride ER) 10 Meq Cap 10 MEQ PO DAILY for Electrolyte Replacement, #30 CAP 0 Refills Simvastatin (Simvastatin) 40 Mg Tab 40 MG PO HS for Cholesterol Management, #30 TAB 0 Refills Discontinued Medications: Losartan-Hydrochlorothiazide (Losartan-Hydrochlorothiazide) 100-25 Mg Tab 1 TAB PO DAILY for Blood Pressure Management, #30 TAB 0 Refills Keara Hastings MD Jan 08, 2017 10:51
== END 2017-01-08 12:16 | disposition home or self-care (01) | DRG 392 ==
LOC: NEPE 14:12 → NEDA 17:14 → N07B 18:36
PROVIDERS: ADMIT Family Medicine; ATTEND Family Medicine
DX: K52.9 Noninfective gastroenteritis and colitis, unspecified (principal); N17.9 Acute kidney failure, unspecified; K92.1 Melena; E86.0 Dehydration; R55 Syncope and collapse; I12.9 Hypertensive chronic kidney disease with stage 1 through stage 4 chronic kidney disease, or unspecified chronic kidney disease; N18.9 Chronic kidney disease, unspecified; I25.10 Atherosclerotic heart disease of native coronary artery without angina pectoris; F41.9 Anxiety disorder, unspecified
CPT/HCPCS: 80048; 80053; 83605; 84484; 85025; 85610; 86850; 86900; 86901; 87040; 93005; 96360; J7030; J7040

== ENCOUNTER → 2017-01-28 | Outpatient (CLI) | payer MEDICARE, BC ==
[~2017-01-28] MED LIST changes: -ACIDTAB4 PO; +AMLO10CA PO; -AUGM875T PO; -BACT800T5 PO; -BIOTCAP PO; -DIOV80TA2 PO; -LOTR10CA PO; +MIRA25TA PO; +OXYB5TAB8 PO; +POTA10CA PO; -POTA75TA PO; +SIMV40TA PO; +VITA10002 PO; -ZOCO40TA PO
[2017-01-28 09:30] LABS: HEMATOCRIT 34.8 % (35.0-46.0); MEAN CELL VOLUME 92.6 FL (80.0-100.0); MEAN CORPUSCULAR HGB CONC 32.4 % (32.0-36.0); PLATELET COUNT 244 TH/MM3 (150-450); RED BLOOD COUNT 3.76 MIL/MM3 (4.00-5.30); RED CELL DISTRIBUTION WIDTH 13.6 % (11.6-17.2); REVIEW FLAG FINAL; WHITE BLOOD COUNT 7.5 TH/MM3 (4.0-11.0)
[2017-01-28 09:43] LABS: ANION GAP 8 MEQ/L (5-15); AST (GOT) 16 U/L (15-37); BICARBONATE 23.4 MEQ/L (21.0-32.0); BLOOD UREA NITROGEN 32 MG/DL (7-18); CHLORIDE 107 MEQ/L (98-107); GLOMERULAR FILTRATION RATE 33 ML/MIN (>89); GLUCOSE,FASTING 87 MG/DL (74-99); POTASSIUM 4.4 MEQ/L (3.5-5.1); SODIUM (NA) 138 MEQ/L (136-145)
[2017-01-28 09:47] LABS: ALKALINE PHOSPHATASE 123 U/L (45-117); ALT (GPT) 9 U/L (10-53); HDL CHOLESTEROL 44.7 MG/DL (40.0-60.0); LDL CHOLESTEROL 72 MG/DL (0-99); LDL CHOLESTEROL DIRECT 86 MG/DL (0-99); TOTAL BILIRUBIN ADULT 0.4 MG/DL (0.2-1.0)
== END ==
LOC: PLAB 06:55
PROVIDERS: ATTEND Family Medicine
DX: I25.10 Atherosclerotic heart disease of native coronary artery without angina pectoris (principal); E78.5 Hyperlipidemia, unspecified; I10 Essential (primary) hypertension
CPT/HCPCS: 36415; 80053; 80061; 83721; 85027

== ENCOUNTER → 2017-05-06 | Outpatient (CLI) | payer MEDICARE, BC ==
[2017-05-06 10:07] LABS: ALBUMIN 3.2 GM/DL (3.4-5.0); AST (GOT) 22 U/L (15-37); BICARBONATE 23.5 MEQ/L (21.0-32.0); BLOOD UREA NITROGEN 35 MG/DL (7-18); CALCIUM 8.9 MG/DL (8.5-10.1); CHLORIDE 109 MEQ/L (98-107); CHOLESTEROL 124 MG/DL (120-200); CREATININE 1.43 MG/DL (0.50-1.00); GLOMERULAR FILTRATION RATE 35 ML/MIN (>89); GLUCOSE,FASTING 85 MG/DL (74-99); SODIUM (NA) 139 MEQ/L (136-145)
[2017-05-06 10:08] LABS: ALT (GPT) 17 U/L (10-53)
[2017-05-06 10:10] LABS: ALKALINE PHOSPHATASE 148 U/L (45-117); CHOLESTEROL/ HDL RATIO 2.63 RATIO; HDL CHOLESTEROL 47.1 MG/DL (40.0-60.0); LDL CHOLESTEROL 60 MG/DL (0-99); LDL CHOLESTEROL DIRECT 72 MG/DL (0-99); TOTAL BILIRUBIN ADULT 0.3 MG/DL (0.2-1.0); TOTAL PROTEIN 7.2 GM/DL (6.4-8.2); TRIGLYCERIDES 84 MG/DL (42-150)
[2017-05-06 13:36] LABS: HEMATOCRIT 34.4 % (35.0-46.0); HEMOGLOBIN 11.3 GM/DL (11.6-15.3); MEAN CORPUSCULAR HGB CONC 32.9 % (32.0-36.0); MEAN PLATELET VOLUME 9.1 FL (7.0-11.0); PLATELET COUNT 199 TH/MM3 (150-450); RED BLOOD COUNT 3.78 MIL/MM3 (4.00-5.30); RED CELL DISTRIBUTION WIDTH 14.4 % (11.6-17.2); WHITE BLOOD COUNT 7.3 TH/MM3 (4.0-11.0)
[2017-05-06 16:24] LABS: HEMOGLOBIN A1C 5.7 % (4.3-6.0)
== END ==
LOC: PLAB 06:54
PROVIDERS: ATTEND Family Medicine
DX: I25.10 Atherosclerotic heart disease of native coronary artery without angina pectoris (principal); E78.5 Hyperlipidemia, unspecified; E78.4 Other hyperlipidemia; R73.01 Impaired fasting glucose
CPT/HCPCS: 36415; 80053; 80061; 83036; 83721; 85027